=== PATIENT | male | born 1955 | race Caucasian/White ===

== ENCOUNTER 2019-01-11 08:33 | Emergency (ER) | payer BC ==
--- NOTE | 2019-01-11 09:11 | ED ---
Upper Extremity Pain - HPI Summary HPI Summary: Patient is a 63-year-old male who presents emergency department for a left shoulder injury that occurred about one week ago. Patient states he was holding a top layer when he was knocked down and states he tried to protect the top better by holding them in an outstretched position. Patient states his left arm poled with the weight of the child. Patient states symptoms he's had left shoulder pain. Pain is worse with abduction. Patient also notes paresthesias and pain down right arm into thumb. Symptoms are mild in severity. Movement makes symptoms worse. Nothing makes symptoms better. - History of Current Complaint Chief Complaint: EDNeckComplaint Stated Complaint: FALL LEFT SHOULDER PAIN Time Seen by Provider: 01/11/19 08:48 Hx Obtained From: Patient - Allergies/Home Medications Allergies/Adverse Reactions: Allergies Allergy/AdvReac Type Severity Reaction Status Date / Time chloramphenicol Allergy Unknown Verified 01/11/19 08:42 [From Chloromycetin] Reaction Details latex Allergy Difficulty Verified 01/11/19 08:42 Breathing/Wheezing PMH/Surg Hx/FS Hx/Imm Hx Previously Healthy: Yes Endocrine/Hematology History: Denies: Hx Diabetes Cardiovascular History: Denies: Hx Hypertension, Hx Pacemaker/ICD History: Denies: Hx Renal Disease Sensory History: Denies: Hx Hearing Aid Psychiatric History: Denies: Hx Panic Disorder - Surgical History Surgery Procedure, Year, and Place: TONSILS Infectious Disease History: No Infectious Disease History: Denies: Traveled Outside the [place] in Last 30 Days - Family History Known Family History: Positive: Non-Contributory - Social History Occupation: Employed Full-time Lives: With Family Alcohol Use: None Substance Use Type: Reports: None Smoking Status (MU): Never Smoked Tobacco Review of Systems Positive: Other - left shoulder pain Skin: Negative Positive: Paresthesia All Other Systems Reviewed And Are Negative: Yes Physical Exam Triage Information Reviewed: Yes Vital Signs On Initial Exam: Initial Vitals Temp Pulse Resp BP Pulse Ox 98.3 F 52 16 150/82 99 01/11/19 08:39 01/11/19 08:39 01/11/19 08:39 01/11/19 08:39 01/11/19 08:39 Vital Signs Reviewed: Yes Appearance: Positive: Well-Appearing - Pt. sitting on bed in NAD. Skin: Positive: Warm, Dry Head/Face: Positive: Normal Head/Face Inspection Eyes: Positive: Normal Neck: Positive: Supple, Nontender - No midline tenderness Musculoskeletal: Positive: Other - good pulse to left radius. 5/5 strength in bilateral UEs. Can touch contralateral shoulder. Cannot abduct arm fully. Neurological: Positive: Normal, CN Intact II-III Psychiatric: Positive: Affect/Mood Appropriate Diagnostics - Vital Signs Vital Signs Temp Pulse Resp BP Pulse Ox 01/11/19 08:39 98.3 F 52 16 150/82 99 - Laboratory Lab Statement: Any lab studies that have been ordered have been reviewed, and results considered in the medical decision making process. Course/Dx - Course Course Of Treatment: Patient with ongoing shoulder pain after fall. Xray per radiology: Report: #. No cortical disruption or suspicious trabecular irregularity to suggest fracture. #. Normal acromioclavicular and glenohumeral joint alignment. #. Mild AC joint osteoarthritis and small inferior acromial bone spur. #. Mild glenohumeral joint space narrowing indicating partial- thickness degeneration of. the hyaline articular cartilage. Minimal glenohumeral joint osteophytic lipping. #. Negative for calcific tendinopathy or abnormal soft tissue contour. IMPRESSION: #. Negative for fracture or dislocation. #. Mild acromioclavicular and glenohumeral joint osteoarthritis. Results discussed. Will have patient follow up with orthopedics for further evaluation and possible MRI. Advised to continue conservative management. Patient understands and agrees with plan. - Diagnoses Differential Diagnosis/HQI/PQRI: Positive: Contusion, Fracture (Closed), Strain , Sprain Provider Diagnoses: Shoulder injury Discharge - Sign-Out/Discharge Documenting (check all that apply): Patient Departure Patient Received Moderate/Deep Sedation with Procedure: No - Discharge Plan Condition: Good Disposition: HOME Patient Education Materials: Shoulder Sprain (ED) Referrals: Chilo Anderson MD [Medical Doctor] - Philip Lloyd MD [Primary Care Provider] - Additional Instructions: Schedule a follow up appointment with the orthopedic clinic for further evaluation Apply ice intermittently Tylenol or Motrin for pain as directed Avoid heavy lifting Return to ER if symptoms change or worsen - Billing Disposition and Condition Condition: GOOD Disposition: Home
[2019-01-11 10:26] VITALS: BP 136/80
== END 2019-01-11 10:25 | disposition home or self-care (01) ==
LOC: ED 08:33
DX: S49.92XA Unspecified injury of left shoulder and upper arm, initial encounter (principal); W18.30XA Fall on same level, unspecified, initial encounter; Y92.9 Unspecified place or not applicable; M19.012 Primary osteoarthritis, left shoulder; Z88.8 Allergy status to other drugs, medicaments and biological substances; Z91.040 Latex allergy status
CPT/HCPCS: 99282